=== PATIENT | male | born 1980 ===

== ENCOUNTER 2017-03-18 21:23 | Emergency (ER) | payer SELFPAY ==
--- NOTE | 2017-03-18 22:03 | C.PDOC ---
History Of Present Illness Patient is a 36 year old male who presents to the ER with acute ETOH intoxication requesting aspirin for his chronic back pain. Has no physical complaints at this time. Time Seen by Provider: 03/18/17 22:02 Chief Complaint (Nursing): Substance Abuse History Per: Patient History/Exam Limitations: no limitations Onset/Duration Of Symptoms: Hrs Current Symptoms Are (Timing): Still Present Suicide/Self Injury Attempted (Context): None Modifying Factor(s): Alcohol Associated Symptoms: denies: Depression, Suicidal Thoughts, Suicidal Plan Recent travel outside of the [place]: No Past Medical History Reviewed: Historical Data, Nursing Documentation, Vital Signs Vital Signs: Last Vital Signs Temp 98 F 03/18/17 22:14 Pulse 99 H 03/18/17 22:14 Resp 16 03/18/17 22:14 BP 110/70 03/18/17 22:14 Pulse Ox 97 03/18/17 22:14 - Medical History PMH: No Chronic Diseases Surgical History: No Surg Hx Family History: States: Unknown Family Hx - Social History Hx Alcohol Use: Yes Hx Substance Use: No Review Of Systems Constitutional: Negative for: Fever, Chills Gastrointestinal: Negative for: Nausea, Vomiting, Diarrhea Musculoskeletal: Positive for: Back Pain (Chronic) Neurological: Positive for: Other (ETOH intoxication) Physical Exam - Physical Exam Appears: Non-toxic, No Acute Distress Skin: Normal Color, Warm, Dry Head: Atraumatic, Normacephalic Oral Mucosa: Moist Chest: Symmetrical, No Tenderness Cardiovascular: Rhythm Regular, No Murmur Respiratory: Normal Breath Sounds, No Rales, No Rhonchi, No Wheezing Gastrointestinal/Abdominal: Soft, No Tenderness Back: Other (thoracolumbar scoliosis) Neurological/Psych: Oriented x3, Normal Speech, Normal Cognition ED Course And Treatment O2 Sat by Pulse Oximetry: 96 (Room air) Pulse Ox Interpretation: Normal Progress Note: Motrin administered. Medical Decision Making Medical Decision Making: ? chronic back pain vs h/o scoliosis etoh in tox NAD motrin and opt f/u. Disposition Doctor Will See Patient In The: Office Counseled Patient/Family Regarding: Studies Performed, Diagnosis - Disposition Referrals: Alcoholics Anonymous [Outside] [facility] at [facility] [Outside] [place] [email or web address] [Outside] Disposition: HOME/ ROUTINE Disposition Time: 22:03 Condition: GOOD Instructions: Alcohol Intoxication (ED), Chronic Back Pain (ED) Print Language: UPPER SORBIAN - Clinical Impression Clinical Impression: Alcohol abuse, Back pain - Scribe Statement The provider has reviewed the documentation as recorded by the [place] All medical record entries made by the [place]dy[place] were at my direction and personally dictated by me. I have reviewed the chart and agree that the record accurately reflects my personal performance of the history, physical exam, medical decision making, and the department course for this patient. I have also personally directed, reviewed, and agree with the discharge instructions and disposition.
[2017-03-18 22:15] VITALS: BP 110/70; PULSE 99; RESP 16; TEMP 98
[2017-03-19 05:06] VITALS: O2SAT 96
== END 2017-03-18 22:19 | disposition home or self-care (01) ==
LOC: C.ER 21:23
DX: F10.10 Alcohol abuse, uncomplicated (principal); M54.9 Dorsalgia, unspecified